=== PATIENT | female | born 1950 | race Caucasian/White ===

== ENCOUNTER → 2019-12-04 | Outpatient (CLI) | payer MEDICARE, OTHER | LOC: COL.RAD 09:47 | DX: E34.9 Endocrine disorder, unspecified (principal) | CPT/HCPCS: A9500 ==

== ENCOUNTER 2020-04-21 10:03 | Outpatient (RCR) | payer MEDICARE, OTHER | END 2020-07-20 | disposition home or self-care (01) | LOC: WSPT | DX: H81.13 Benign paroxysmal vertigo, bilateral (principal) ==

== ENCOUNTER → 2021-03-28 | Outpatient (CLI) | payer MEDICARE, OTHER | LOC: COL.RAD 10:23 | DX: I80.251 Phlebitis and thrombophlebitis of right calf muscular vein (principal) ==

== ENCOUNTER → 2021-09-12 | Outpatient (CLI) | payer MEDICARE, OTHER | LOC: COL.VAS 07:50 | DX: M79.89 Other specified soft tissue disorders (principal) ==

== ENCOUNTER → 2023-12-10 | Outpatient (CLI) | payer MEDICARE, OTHER | LOC: COL.RAD 09:54 | DX: E21.3 Hyperparathyroidism, unspecified (principal) | CPT/HCPCS: A9500-JZ ==